=== PATIENT | female | born 1995 | race Caucasian/White ===

== ENCOUNTER 2022-07-04 07:40 | Day surgery (SDC) | payer BC, OTHER ==
[~2022-07-04 07:40] MED LIST: Clindamycin Phosphate in D5W 900 MG in Premix Bag 1 BAG IV ONE; Gentamicin 500 MG in Sodium Chloride 0.9% 100 ML IV SCH; Gentamicin Pediatric 10 MG/ML 2 ML SDV IV ONE; Sodium Chloride 0.9% 10 ML Syringe FLUSH PRN; Sodium Chloride 0.9% 2.5 ML Syringe FLUSH PRN; Sodium Chloride 0.9% 20 ML SDV IV PRN
[2022-07-04] MEDS ORDERED: Morphine 2 MG/ML SYRINGE IVPUSH PRN (07:48)
[2022-07-04] MEDS ORDERED: Metoclopramide 10 MG/2 ML SDV IVPUSH PRN (07:48)
[2022-07-04] MEDS ORDERED: Naloxone 0.4 MG/ML SDV IVPUSH PRN (07:48)
[2022-07-04] MEDS ORDERED: fentaNYL 50 MCG/ML SDV IVPUSH PRN (07:48)
[2022-07-04] MEDS ORDERED: HYDROmorphone 1 MG/ML Syringe IVPUSH PRN (07:48)
[2022-07-04] MEDS ORDERED: Ondansetron 4 MG/2 ML SDV IVPUSH PRN ×2 (07:48→11:29)
[2022-07-04] MEDS ORDERED: Albuterol 0.083% 2.5 MG/3 ML Neb Soln NEB PRN (07:48)
[2022-07-04] MEDS ORDERED: Scopolamine 1.5 MG Transdermal Patch TOP ONE (07:58)
[2022-07-04] MEDS ORDERED: Methylene Blue 50 MG/10 ML Ampule ONE (08:02)
[2022-07-04] MEDS ORDERED: Bupivacaine 0.25% 30 ML SDV ONE (08:03)
[2022-07-04] MEDS ORDERED: Clindamycin Phosphate in D5W 900 MG in Premix Bag 1 BAG IV ONE ×2 (08:15)
[2022-07-04 08:57] LABS: CARBON DIOXIDE,CO2 25.6 mmol/L (21.0-32.0); POTASSIUM,K 3.9 mmol/L (3.5-5.1)
[2022-07-04] MEDS ORDERED: Scopolamine 1.5 MG Transdermal Patch ONE (09:01)
[2022-07-04] MEDS ORDERED: Dexamethasone 4 MG/ML 5 ML MDV ONE (09:05)
[2022-07-04] MEDS ORDERED: Ketorolac 30 MG/ML SDV ONE (09:05)
[2022-07-04] MEDS ORDERED: Lidocaine 2% 5 ML SDV ONE (09:05)
[2022-07-04] MEDS ORDERED: Ondansetron 4 MG/2 ML SDV ONE (09:05)
[2022-07-04] MEDS ORDERED: Sugammadex Sodium 200 MG/2 ML VIAL ONE (09:05)
[2022-07-04] MEDS ORDERED: Rocuronium Bromide 50 MG/5 ML Syringe ONE (09:05)
[2022-07-04] MEDS ORDERED: Propofol 200 MG/20 ML SDV ONE ×2 (09:06→11:07)
[2022-07-04] MEDS ORDERED: fentaNYL 100 MCG/2 ML SDV ONE (09:10)
[2022-07-04] MEDS ORDERED: Ropivacaine 0.5% 5 MG/ML 30 ML SDV ONE (09:18)
[2022-07-04] MEDS ORDERED: Bupivacaine 0.25%/EPINEPHrine 1:200,000 10 ML SDV ONE (09:19)
[2022-07-04] MEDS ORDERED: Phenylephrine 1% 10 MG/ML SDV ONE (09:55)
[2022-07-04] MEDS ORDERED: Labetalol 100 MG/20 ML MDV ONE (10:02)
[2022-07-04] MEDS ORDERED: propofoL 100 ML ONE (10:09)
[2022-07-04] MEDS ORDERED: Metoprolol Tartrate 5 MG/5 ML SDV ONE (10:15)
[2022-07-04] MEDS ORDERED: Ketorolac 30 MG/ML SDV IVPUSH ONE (11:29)
[2022-07-04] MEDS ORDERED: Promethazine 25 MG/ML SDV IM PRN (11:29)
[2022-07-04] MEDS ORDERED: Acetaminophen/oxyCODONE 325-5 MG Tab PO PRN ×3 (11:29→15:18)
[2022-07-04] MEDS ORDERED: fentaNYL 100 MCG/2 ML SDV IVPUSH PRN (11:44)
[2022-07-04] MEDS: Ketorolac 30 MG/ML SDV IVPUSH PRN (13:32)
[2022-07-04] MEDS: Lactated Ringers 1,000 ML IV SCH ×2 (13:37→22:54)
[2022-07-04] MEDS: Acetaminophen/oxyCODONE 325-5 MG Tab PO PRN ×2 (15:43→20:16)
[2022-07-05] MEDS: Ketorolac 30 MG/ML SDV IVPUSH PRN (03:53)
[2022-07-05 06:26] LABS: CARBON DIOXIDE,CO2 26.8 mmol/L (21.0-32.0)
[2022-07-05] MEDS: Lactated Ringers 1,000 ML IV SCH (07:18)
[2022-07-05 11:51] VITALS: BP 138/75; PULSE 81
[2022-07-05] MEDS: Acetaminophen/oxyCODONE 325-5 MG Tab PO PRN (12:14)
== END 2022-07-05 13:05 | disposition home or self-care (01) ==
LOC: MW.SDS 07:40 → MW.MS 13:13 → MW.SDS 07-05 13:05
PROVIDERS: ATTEND Obstetrics & Gynecology
DX: D25.9 Leiomyoma of uterus, unspecified (principal); N80.03 Adenomyosis of the uterus; E66.01 Morbid (severe) obesity due to excess calories; F41.9 Anxiety disorder, unspecified; F32.A Depression, unspecified; E11.9 Type 2 diabetes mellitus without complications; Z68.43 Body mass index [BMI] 50.0-59.9, adult; Z79.899 Other long term (current) drug therapy; Z98.890 Other specified postprocedural states; Z88.0 Allergy status to penicillin; Z88.5 Allergy status to narcotic agent; Z88.1 Allergy status to other antibiotic agents; Z88.2 Allergy status to sulfonamides; Z88.6 Allergy status to analgesic agent; Z90.710 Acquired absence of both cervix and uterus; Z20.822 Contact with and (suspected) exposure to COVID-19
CPT/HCPCS: 36415; 58550; 80048; 84703; 85025; 85027; 86850; 86900; 86901; 87635; A9270; J1100; J1580; J1885; J2405; J2704; J2795; J3010; J3490; J7030; J7120; 00944; 64488; J2370; U0002

== ENCOUNTER 2022-07-11 22:24 | Emergency (ER) | payer BC ==
[2022-07-11 23:07] LABS: POTASSIUM,K 4.3 mmol/L (3.5-5.1)
[2022-07-11] MEDS ORDERED: Iopamidol 755 MG/ML 500 ML Multipack Bottle IVPUSH STA (23:47)
[2022-07-11] MEDS ORDERED: Acetaminophen 500 MG Tab PO ONE (23:53)
[2022-07-12 01:03] VITALS: BP 130/70; PULSE 78
== END 2022-07-12 01:03 | disposition home or self-care (01) ==
LOC: MW.ED 22:24
DX: K91.870 Postprocedural hematoma of a digestive system organ or structure following a digestive system procedure (principal); K21.9 Gastro-esophageal reflux disease without esophagitis; E66.9 Obesity, unspecified; Z88.0 Allergy status to penicillin; Z88.1 Allergy status to other antibiotic agents; Z88.6 Allergy status to analgesic agent; Z88.5 Allergy status to narcotic agent; Z88.2 Allergy status to sulfonamides; Z68.43 Body mass index [BMI] 50.0-59.9, adult; Z87.891 Personal history of nicotine dependence
CPT/HCPCS: 36415; 74177; 80053; 81001; 83735; 85025; 85610; 85730; 99284; A9270; Q9967